=== PATIENT | female | born 1990 | race Caucasian/White ===

== ENCOUNTER 2019-02-19 18:56 | Emergency (ER) | payer SELFPAY ==
[~2019-02-19] VITALS: Ht 170.2 cm; Wt 54.4 kg
--- OUTSIDE RECORDS SUMMARY | 2019-02-19 19:00 | XMS REPORT ---
Author Author Migration, Doctor Organization [facility] Address Unknown Phone Unavailable Care Team Providers Care Clerk Checker Name Role Phone Migration, Doctor Unavailable Unavailable PROBLEMS No Known Problems ALLERGIES No Information ENCOUNTERS Encounter Location Date Diagnosis [facility] [address] [address] Nov, Sore throat J02.9 and Acute non-recurrent pansinusitis J01.40 [facility] IN [place] [address] [address] Aug, Bronchitis J40 and Cough R05 [address] [address] Oct, Encounter for surveillance of contraceptive pills Z30.41 [place] [address] [address] 18 Nov, [address] [address] Nov, Well woman exam with routine gynecological exam Z01.[address] [address] 17 Aug, 2016 Acute non-recurrent frontal sinusitis J01.10 [place] [address] [address] 20 Aug, 2015 Well woman exam Z01.419 ; Encounter for screening for malignant neoplasm of cervix Z12.4 ; Right lower quadrant pain R10.31 ; Diarrhea R19.7 ; Surveillance of contraceptive injection Z30.42 ; Encounter for counseling regarding contraception Z30.9 ; Vaginal lesion N89.8 ; Yeast infection B37.9 and Routine screening for STI (sexually transmitted infection) Z11.[address] [address] May, Encounter for Depo-Provera contraception Z30.42 [facility] [address] [id number] [address] Feb, Encounter for contraceptive management V25.9 [facility] [address] [facility] [id number], [place] [address] Nov, [facility] [address] [place] [id number] [place] [address] Nov, [facility] [address] [facility] [id number], [place] [address] Oct, [facility] [address] [place] [id number] [place] [address] Oct, [facility] [address] [place] [id number] [place] [address] Sep, [facility] [address] [place] [id number] [place] [address] Sep, [facility] [address] [place] [id number], [place] [address] Aug, [facility] [id number] [place] [address] Aug, [facility] [address] [place] [id number], [place] [address] Aug, [facility] [address] [place] [id number] [address] Jul, [facility] [address] [place] [id number], [place] [address] Jul, [facility] [address] [id number] [address] Apr, [facility] [address] [place] [id number], [place] [address] Apr, [facility] [address], [place] [address] December, [facility] [place] [facility] [address] [id number] [place] [address] December, [facility] [place] [facility] [address] [id number] [place] [address] Sep, [facility] [place] [facility] [address] [id number] [place] [address] Sep, [facility] [place] [facility] [address] [id number] [place] [address] Jul, [facility] [place] [facility] [address] [id number] [place] [address] Jul, [facility] [place] [facility] [address] [id number] [place] [address] Jun, [facility] [place] [facility] [address] [id number] [place] [address] Jun, [facility] [place] [facility] [address] [id number] [place] [address] Jun, [facility] [place] [facility] [address] [id number] [place] [address] Jun, [facility] [place] [facility] [address] [id number] [place] [address] Jun, [facility] [place] [facility] [address] [id number] [place] [address] Mar, [facility] [place] [facility] [address] [id number], [place] [address] Nov, [facility] [place] [facility] [address] [id number] [place] [address] Jun, [facility] [place] [facility] [address] [id number] [place] [address] Jun, [facility] [place] [facility] [address] [id number] [place] [address] Sep, [facility] [place] [facility] [address] [facility] [id number] [place] [address] Oct, [facility] [address] [facility] [id number] [place] [address] May, IMMUNIZATIONS No Known Immunizations SOCIAL HISTORY Never Assessed REASON FOR VISIT [facility] PLAN OF CARE VITAL SIGNS MEDICATIONS No Known Medications RESULTS No Results PROCEDURES No Known procedures INSTRUCTIONS MEDICATIONS ADMINISTERED No Known Medications MEDICAL (GENERAL) HISTORY Type Description Date Surgical History No know Surgical history
--- OUTSIDE RECORDS SUMMARY | 2019-02-19 19:00 | XMS REPORT ---
Author Author Migration, Doctor Organization [facility] Address Unknown Phone Unavailable Care Team Providers Care Charge Entry Name Role Phone Migration, Doctor Unavailable Unavailable PROBLEMS No Known Problems ALLERGIES No Information ENCOUNTERS Encounter Location Date Diagnosis [facility] [address] [place] [address] [id number] [place] [address] 14 Aug, 2018 Bronchitis J40 and Cough R05 [place] [address] [address] Oct, Encounter for surveillance of contraceptive pills Z30.41 [place] [address] [address] Nov, [place] [address] [address] Nov, Well woman exam with routine gynecological exam Z01.419 [place] [address] [address] 17 Aug, 2016 Acute non-recurrent frontal sinusitis J01.10 [place] [address] [place] [id number] [place] [address] Aug, Well woman exam Z01.419 ; Encounter for screening for malignant neoplasm of cervix Z12.4 ; Right lower quadrant pain R10.31 ; Diarrhea R19.7 ; Surveillance of contraceptive injection Z30.42 ; Encounter for counseling regarding contraception Z30.9 ; Vaginal lesion N89.8 ; Yeast infection B37.9 and Routine screening for STI (sexually transmitted infection) Z11.3 [place] [address] [address] May, Encounter for Depo-Provera contraception Z30.42 [place] [address] [address] Feb, Encounter for contraceptive management V25.9 [facility] [address] [id number] [place] [address] Nov, [facility] [address] [id number] [place] [address] Nov, [facility] [address] [facility] [id number] [place] [address] Oct, [facility] [address] [id number] [place] [address] Oct, [facility] [address] [id number] [place] [address] Sep, [facility] [address] [facility] [id number] [place] [address] Sep, [facility] [address] [facility] [id number] [place] [address] Aug, [facility] [address] [id number] [address] Aug, [facility] [address] [facility] [id number] [place] [address] Aug, [facility] [address] [facility] [id number] [place] [address] Jul, [facility] [address] [facility] [id number], [place] [address] Jul, [facility] [address] [id number], [place] [address] Apr, [facility] [address] [id number] [place] [address] Apr, [facility] [address] [facility] [id number], [place] [address] December, [facility] [place] [facility] [address] [facility] [id number] [place] [address] December, [facility] [address] [id number] [place] [address] Sep, [facility] [address] [id number] [place] [address] Sep, [facility] [address] [id number] [place] [address] Jul, [facility] [address] [id number] [place] [address] Jul, [facility] [address] [id number] [place] [address] Jun, [facility] [address] [id number] [place] [address] Jun, [facility] [address] [facility] [id number] [place] [address] Jun, [facility] [address] [facility] [id number] [place] [address] Jun, [facility] [address] [id number] [place] [address] Jun, [facility] [address] [facility] [id number] [place] [address] Mar, [facility] [address] [facility] [id number] [place] [address] Nov, [facility] [address] [id number] [place] [address] Jun, [facility] [address] [id number] [place] [address] Jun, [facility] [address] [facility] [id number] [place] [address] Sep, [facility] [address] [id number] [place] [address] Oct, [facility] [address] [id number] [place] [address] May, IMMUNIZATIONS No Known Immunizations SOCIAL HISTORY Never Assessed REASON FOR VISIT [facility] PLAN OF CARE VITAL SIGNS MEDICATIONS Medication Instructions Dosage Frequency Start Date End Date Duration Status Depo-Provera 150 mg/mL inject 150 mg by intramuscular route every 3 months Aug, Active Amoxicillin 500 mg 1 capsule by Oral route 2 times per day for 10 day(s) Nov, Active Augmentin 875-125 mg 1 tablet by Oral route 2 times per day for 14 day(s) Jul, Active Amoxicillin 875 mg 1 tablet by Oral route 2 times per day for 7 day(s) Jun, Active RESULTS No Results PROCEDURES No Known procedures INSTRUCTIONS MEDICATIONS ADMINISTERED No Known Medications MEDICAL (GENERAL) HISTORY Type Description Date Surgical History No know Surgical history
--- OUTSIDE RECORDS SUMMARY | 2019-02-19 19:01 | XMS REPORT ---
Author Author MARYJO GUNN [facility] Address [address] [place] [address] Care Team Providers Care Medical Orderly Name Role Phone MARYJO GUNN Unavailable PROBLEMS Unknown Problems ALLERGIES No Known Allergies ENCOUNTERS Encounter Location Date Diagnosis [place] [id number] [place] [address] Oct, Encounter for surveillance of contraceptive pills Z30.41 [place] [id number] [place] [address] Nov, [address] [address] Nov, Well woman exam with routine gynecological exam Z01.419 [place] [id number] [place] [address] Aug, Acute non-recurrent frontal sinusitis J01.10 [place] [id number] [place] [address] Aug, Well woman exam Z01.419 ; Encounter for screening for malignant neoplasm of cervix Z12.4 ; Right lower quadrant pain R10.31 ; Diarrhea R19.7 ; Surveillance of contraceptive injection Z30.42 ; Encounter for counseling regarding contraception Z30.9 ; Vaginal lesion N89.8 ; Yeast infection B37.9 and Routine screening for STI (sexually transmitted infection) Z11.3 [place] [id number] [place] [address] May, Encounter for Depo-Provera contraception Z30.42 [place] [id number] [place] [address] Feb, Encounter for contraceptive management V25.[address] [id number] [place] [address] 14 Nov, 2014 [facility] [place] [facility] [address] [id number] [place] [address] Nov, [facility] [place] [facility] [address] [id number] [place] [address] Oct, [facility] [place] [facility] [address] [id number] [place] [address] Oct, [facility] [place] [facility] [address] [id number] [place] [address] Sep, [facility] [place] [facility] [address] [id number] [place] [address] Sep, [facility] [place] [facility] [address] [id number] [place] [address] Aug, [facility] [place] [facility] [address] [id number] [place] [address] Aug, [facility] [place] [facility] [address] [id number] [place] [address] Aug, [facility] [place] [facility] [address] [id number] [place] [address] Jul, [facility] [place] [facility] [address] [id number] [place] [address] Jul, [facility] [place] [facility] [address] [id number] [place] [address] Apr, [facility] [place] [facility] [address] [id number] [place] [address] Apr, [facility] [place] [facility] [address] [id number] [place] [address] December, [facility] [place] [facility] [address] [id number] [place] [address] December, [facility] [place] [facility] [address] [id number] [place] [address] Sep, [facility] [address] [facility] [id number] [place] [address] Sep, [facility] [address] [facility] [id number] [place] [address] Jul, [facility] [address] [facility] [id number] [place] [address] Jul, [facility] [address] [facility] [id number] [place] [address] Jun, [facility] [address] [facility] [id number] [place] [address] Jun, [facility] [address] [facility] [id number] [place] [address] Jun, [facility] [address] [place] [address] [id number] [address] Jun, [facility] [address] [facility] [id number] [place] [address] Jun, [facility] [address] [facility] [id number] [place] [address] Mar, [facility] [address] [facility] [id number] [place] [address] Nov, [facility] [address] [place] [address] [id number] [address] Jun, [facility] [address] [facility] [id number] [place] [address] Jun, [facility] [address] [facility] [id number] [place] [address] Sep, [facility] [address] [facility] [id number] [place] [address] Oct, [facility] [address] [facility] [id number] [place] [address] May, IMMUNIZATIONS No Known Immunizations SOCIAL HISTORY Never Assessed REASON FOR VISIT control refills PLAN OF CARE Activity Details Follow Up 6 Months, prn Reason:annual physical VITAL SIGNS MEDICATIONS Medication Instructions Dosage Frequency Start Date End Date Duration Status Ortho Tri-Cyclen (28) 0.18/0.215/0.25 MG-35 MCG Orally Once a day 1 tablet 24h Nov, 28 day(s) Active RESULTS Name Result Date Reference Range TEST, URINE (IN HOUSE) 2017-11-19 RESULTS Negative Lot # [id number] Control + Exp date 05/2019 PROCEDURES Procedure Date Ordered Result Body Site URINE TEST November 19, 2017 INSTRUCTIONS MEDICATIONS ADMINISTERED No Known Medications
--- OUTSIDE RECORDS SUMMARY | 2019-02-19 19:01 | XMS REPORT ---
Author Author EDY PAGE [facility] eClinicalWorks Address Unknown Phone Unavailable Care Team Providers Care Site Monitor Name Role Phone EDY PAGE Unavailable Allergies, Adverse Reactions, Alerts Substance Reaction Event Type N.K.D.A. Info Not Available Non Drug Allergy Problems Problem Type Condition Code Onset Dates Condition Status Assessment Yeast infection B37.9 Active Assessment Encounter for counseling regarding contraception Z30.9 Active Assessment Vaginal lesion N89.8 Active Assessment Routine screening for STI (sexually transmitted infection) Z11.3 Active Problem Vaginal lesion N89.8 Active Assessment Well woman exam Z01.419 Active Problem Surveillance of contraceptive injection Z30.42 Active Assessment Diarrhea R19.7 Active Assessment Surveillance of contraceptive injection Z30.42 Active Assessment Encounter for screening for malignant neoplasm of cervix Z12.4 Active Assessment Right lower quadrant pain R10.31 Active Medications Medication Code System Code Instructions Start Date End Date Status Dosage Diflucan [facility] [address]-99 150 MG Orally Once Sep 13, 2015 1 tablet Depo-Provera [facility] [address]-75 150 MG/ML Intramuscular Once every 3 months Sep 07, 2014 inject 150 mg by intramuscular route every 3 months Procedures Procedure Coding System Code Date VIRUS INOCULATION, SHELL VIA CPT-4 55235 Sep 13, 2015 ALLISON VIRUS ISOLATE, HSV CPT-4 53839 Sep 13, 2015 DEPO PROVERA (150 MG/ML) CPT-4 J1050 Sep 13, 2015 TRICHOMONAS ASSAY W/OPTIC CPT-4 13584 Sep 13, 2015 No Charge CPT-4 78802 Sep 13, 2015 URINE TEST CPT-4 62087 Sep 13, 2015 CULTURE, BACTERIA, OTHER CPT-4 62818 Sep 13, 2015 THER/PROPH/DIAG INJ, SC/IM CPT-4 96705 Sep 13, 2015 VENIPUNCT, ROUTINE* CPT-4 81766 Sep 13, 2015 HERPES SIMPLEX TYPE 2 CPT-4 57552 Sep 13, 2015 Preventive Care Est Pt. Age 18-39 CPT-4 94879 Sep 13, 2015 HERPES SIMPLEX TEST CPT-4 72606 Sep 13, 2015 SPECIMEN HANDLING CPT-4 09660 Sep 13, 2015 Vital Signs Date/Time: Sep 13, 2015 Temperature 98.6 F Weight 118.4 lbs Height 68 in BMI 18.00 Index Blood Pressure Diastolic 70 mmHg Blood Pressure Systolic 108 mmHg Cardiac Monitoring Heart Rate 72 bpm Results Name Result Date Reference Range Unit Abnormality Flag TRICHOMONAS (IN HOUSE) ----Lot # [id number] ----Exp date 20150913 ----TRICHOMONAS Negative [id number] ----Control + [id number] TEST, URINE (IN HOUSE) ----RESULTS negative [id number] ----Lot # [id number] ----Control + [id number] ----Exp date 20150913 ROUTINE VENIPUNCTURE Summary Purpose eClinicalWorks Submission
--- OUTSIDE RECORDS SUMMARY | 2019-02-19 19:01 | XMS REPORT ---
Author Author NOEL ROSSI Organization [facility] Address [address] [place] [address] Care Team Providers Care Environmental Services Manager Name Role Phone NOEL ROSSI Unavailable PROBLEMS Type Condition ICD9-CM Code [id number] Code Onset Dates Condition Status SNOMED Code Problem Surveillance of contraceptive injection Z30.42 Active 333559503 Problem Vaginal lesion N89.8 Active [id number] ALLERGIES Substance Reaction Event Type Date Status N.K.D.A. Unknown Non Drug Allergy Aug, Unknown SOCIAL HISTORY No smoking Hx information available PLAN OF CARE Activity Details Follow Up prn Reason: VITAL SIGNS Height 68 in 2016-09-10 Weight 116.1 lbs 2016-09-10 Temperature 97.8 degrees Fahrenheit 2016-09-10 Heart Rate 82 bpm 2016-09-10 Respiratory Rate 18 2016-09-10 BMI 17.65 kg/m2 2016-09-10 Blood pressure systolic 116 mmHg 2016-09-10 Blood pressure diastolic 74 mmHg 2016-09-10 MEDICATIONS Medication Instructions Dosage Frequency Start Date End Date Duration Status Augmentin 875-125 MG Orally every 12 hrs 1 tablet 12h Aug, Aug, 10 day(s) Active RESULTS No Results PROCEDURES Procedure Date Ordered Related Diagnosis Body Site Office Visit, Est Pt., Level 3 Sep 10, 2016 IMMUNIZATIONS No Known Immunizations
--- OUTSIDE RECORDS SUMMARY | 2019-02-19 19:01 | XMS REPORT ---
Author MAXIMILIANO Lozano [facility] eClinicalWorks Address Unknown Phone Unavailable Care Team Providers Care Adult Secondary Education Instructor Name Role Phone MAXIMILIANO RAZO CP Unavailable Allergies No Known Allergies Problems Problem Type Condition Code Onset Dates Condition Status Problem Screening for malignant neoplasm of the cervix V76.2 Active Problem Unspecified breast screening V76.10 Active Problem Acute sinusitis, unspecified 461.9 Active Problem Acute pharyngitis 462 Active Assessment Encounter for Depo-Provera contraception Z30.42 Active Problem Unspecified disorder of the teeth and supporting structures 525.9 Active Problem Routine gynecological examination V72.31 Active Medications No Known Medications Procedures Procedure Coding System Code Date DEPO PROVERA (150 MG/ML) CPT-4 J1050 Jun 15, 2015 THER/PROPH/DIAG INJ, SC/IM CPT-4 43945 Jun 15, 2015 URINE TEST CPT-4 86512 Jun 15, 2015 Results Name Result Date Reference Range Unit Abnormality Flag TEST, URINE (IN HOUSE) Summary Purpose eClinicalWorks Submission
--- OUTSIDE RECORDS SUMMARY | 2019-02-19 19:01 | XMS REPORT | Continuity of Care Document ---
Author Organization Unknown Address Unknown Allergies There is no data. Medications There is no data. Problems Date Dx Coded Attending Type Code Diagnosis Diagnosed By 04/05/2008 599.0 URINARY TRACT INFECTION 04/05/2008 V25.40 CONTRACEPTIVE SURVEILLANCE UNSPECIFIED 04/05/2008 599.0 URINARY TRACT INFECTION 04/05/2008 V25.40 CONTRACEPTIVE SURVEILLANCE UNSPECIFIED 04/05/2008 599.0 URINARY TRACT INFECTION 04/05/2008 V25.40 CONTRACEPTIVE SURVEILLANCE UNSPECIFIED 04/05/2008 TENNILLE STALLINGS ASIA A 599.0 URINARY TRACT INFECTION 04/05/2008 TENNILLE STALLINGS ASIA A V25.40 CONTRACEPTIVE SURVEILLANCE UNSPECIFIED 04/05/2008 MARLENE STALLINGS ALMITA R 599.0 URINARY TRACT INFECTION 04/05/2008 ROSARIO HAYLIE, ALMITA R V25.40 CONTRACEPTIVE SURVEILLANCE UNSPECIFIED 04/05/2008 RAZO DO, MAXIMILIANO K 599.0 URINARY TRACT INFECTION 04/05/2008 RAZO DO, MAXIMILIANO K V25.40 CONTRACEPTIVE SURVEILLANCE UNSPECIFIED 04/05/2008 RAZO DO, MAXIMILIANO K 599.0 URINARY TRACT INFECTION 04/05/2008 RAZO DO, MAXIMILIANO K V25.40 CONTRACEPTIVE SURVEILLANCE UNSPECIFIED 04/05/2008 RAZO DO, MAXIMILIANO K 599.0 URINARY TRACT INFECTION 04/05/2008 RAZO DO, MAXIMILIANO K V25.40 CONTRACEPTIVE SURVEILLANCE UNSPECIFIED 04/05/2008 TENNILLECarmelo STALLINGS ASIA A 599.0 URINARY TRACT INFECTION 04/05/2008 TENNILLECarmelo STALLINGS ASIA A V25.40 CONTRACEPTIVE SURVEILLANCE UNSPECIFIED 04/05/2008 RAZO DO, MAXIMILIANO K 599.0 URINARY TRACT INFECTION 04/05/2008 RAZO DO, MAXIMILIANO K V25.40 CONTRACEPTIVE SURVEILLANCE UNSPECIFIED 04/06/2008 V25.49 SURVEILLANCE OF OTHER CONTRACEPTIVE METHOD 04/06/2008 V25.49 SURVEILLANCE OF OTHER CONTRACEPTIVE METHOD 04/06/2008 V25.49 SURVEILLANCE OF OTHER CONTRACEPTIVE METHOD 04/06/2008 SHARONDA NULL APRNIDI A V25.49 SURVEILLANCE OF OTHER CONTRACEPTIVE METHOD 04/06/2008 MARLENE STALLINGS, ALMITA R V25.49 SURVEILLANCE OF OTHER CONTRACEPTIVE METHOD 04/06/2008 RAZO DO MAXIMILIANO K V25.49 SURVEILLANCE OF OTHER CONTRACEPTIVE METHOD 04/06/2008 RAZO DO MAXIMILIANO K V25.49 SURVEILLANCE OF OTHER CONTRACEPTIVE METHOD 04/06/2008 RAZO DO MAXIMILIANO K V25.49 SURVEILLANCE OF OTHER CONTRACEPTIVE METHOD 04/06/2008 SHARONDA NULL APRNIDI A V25.49 SURVEILLANCE OF OTHER CONTRACEPTIVE METHOD 04/06/2008 RAZO DO MAXIMILIANO K V25.49 SURVEILLANCE OF OTHER CONTRACEPTIVE METHOD 08/31/2008 465.9 UPPER RESPIRATORY INFECTION 08/31/2008 786.2 COUGH 08/31/2008 465.9 UPPER RESPIRATORY INFECTION 08/31/2008 786.2 COUGH 08/31/2008 465.9 UPPER RESPIRATORY INFECTION 08/31/2008 786.2 COUGH 08/31/2008 SHARONDA NULL APRNIDI A 465.9 UPPER RESPIRATORY INFECTION 08/31/2008 SHARONDA NULL APRNIDI A 786.2 COUGH 08/31/2008 YOLIE ROSARIO APRNRICIA R 465.9 UPPER RESPIRATORY INFECTION 08/31/2008 ROSARIO HAYLIE, ALMITA R 786.2 COUGH 08/31/2008 RAZO DO, MAXIMILIANO K 465.9 UPPER RESPIRATORY INFECTION 08/31/2008 RAZO DO, MAXIMILIANO K 786.2 COUGH 08/31/2008 RAZO DO, MAXIMILIANO K 465.9 UPPER RESPIRATORY INFECTION 08/31/2008 RAZO DO, MAXIMILIANO K 786.2 COUGH 08/31/2008 RAZO DO, MAXIMILIANO K 465.9 UPPER RESPIRATORY INFECTION 08/31/2008 RAZO DO, MAXIMILIANO K 786.2 COUGH 08/31/2008 SHARONDA NULL APRNIDI A 465.9 UPPER RESPIRATORY INFECTION 08/31/2008 TENNILLE STALLINGS ASIA A 786.2 COUGH 08/31/2008 RAZO DO, MAXIMILIANO K 465.9 UPPER RESPIRATORY INFECTION 08/31/2008 RZAO DO, MAXIMILIANO K 786.2 COUGH 02/17/2010 704.8 OTHER SPECIFIED DISEASES OF HAIR AND HAIR FOLLICLES 02/17/2010 704.8 OTHER SPECIFIED DISEASES OF HAIR AND HAIR FOLLICLES 02/17/2010 704.8 OTHER SPECIFIED DISEASES OF HAIR AND HAIR FOLLICLES 02/17/2010 ASIA NULL APRN A 704.8 OTHER SPECIFIED DISEASES OF HAIR AND HAIR FOLLICLES 02/17/2010 ALMITA ROSARIO APRN 704.8 OTHER SPECIFIED DISEASES OF HAIR AND HAIR FOLLICLES 02/17/2010 MAXIMILIANO RAZO DO 704.8 OTHER SPECIFIED DISEASES OF HAIR AND HAIR FOLLICLES 02/17/2010 MAXIMILIANO RAZO DO K 704.8 OTHER SPECIFIED DISEASES OF HAIR AND HAIR FOLLICLES 02/17/2010 MAXIMILIANO RAZO DO K 704.8 OTHER SPECIFIED DISEASES OF HAIR AND HAIR FOLLICLES 02/17/2010 ASIA NULL APRN A 704.8 OTHER SPECIFIED DISEASES OF HAIR AND HAIR FOLLICLES 02/17/2010 MAXIMILIANO RAZO DO K 704.8 OTHER SPECIFIED DISEASES OF HAIR AND HAIR FOLLICLES 11/07/2010 720.2 SACROILIITIS NOT ELSEWHERE CLASSIFIED 11/07/2010 720.2 SACROILIITIS NOT ELSEWHERE CLASSIFIED 11/07/2010 720.2 SACROILIITIS NOT ELSEWHERE CLASSIFIED 11/07/2010 ASIA NULL APRN 720.2 SACROILIITIS NOT ELSEWHERE CLASSIFIED 11/07/2010 ALMITA ROSARIO APRN 720.2 SACROILIITIS NOT ELSEWHERE CLASSIFIED 11/07/2010 MAXIMILIANO RAZO DO K 720.2 SACROILIITIS NOT ELSEWHERE CLASSIFIED 11/07/2010 MAXIMILIANO RAZO DO K 720.2 SACROILIITIS NOT ELSEWHERE CLASSIFIED 11/07/2010 MAXIMILIANO RAZO DO K 720.2 SACROILIITIS NOT ELSEWHERE CLASSIFIED 11/07/2010 ASIA NULL APRN A 720.2 SACROILIITIS NOT ELSEWHERE CLASSIFIED 11/07/2010 MAXIMILIANO RAZO DO K 720.2 SACROILIITIS NOT ELSEWHERE CLASSIFIED 12/20/2010 626.4 IRREGULAR MENSTRUAL CYCLE 12/20/2010 706.1 ACNE 12/20/2010 V20.2 WELL CHILD 12/20/2010 V25.01 CONTRACEPTION COUNSELING- ORAL CONTRACEPTION 12/20/2010 626.4 IRREGULAR MENSTRUAL CYCLE 12/20/2010 706.1 ACNE 12/20/2010 V20.2 WELL CHILD 12/20/2010 V25.01 CONTRACEPTION COUNSELING- ORAL CONTRACEPTION 12/20/2010 626.4 IRREGULAR MENSTRUAL CYCLE 12/20/2010 706.1 ACNE 12/20/2010 V20.2 WELL CHILD 12/20/2010 V25.01 CONTRACEPTION COUNSELING- ORAL CONTRACEPTION 12/20/2010 TENNILLE GAS MANAGER, ASIA A 626.4 IRREGULAR MENSTRUAL CYCLE 12/20/2010 TENNILLE GAS MANAGER, ASIA A 706.1 ACNE 12/20/2010 TENNILLE GAS MANAGER, ASIA A V20.2 WELL CHILD 12/20/2010 TENNILLE GAS MANAGER, ASIA A V25.01 CONTRACEPTION COUNSELING- ORAL CONTRACEPTION 12/20/2010 ROSARIO GAS MANAGER, ALMITA R 626.4 IRREGULAR MENSTRUAL CYCLE 12/20/2010 ROSARIO GAS MANAGER, ALMITA R 706.1 ACNE 12/20/2010 ROSARIO GAS MANAGER, ALMITA R V20.2 WELL CHILD 12/20/2010 ROSARIO GAS MANAGER, ALMITA R V25.01 CONTRACEPTION COUNSELING- ORAL CONTRACEPTION 12/20/2010 RAZO DO, MAXIMILIANO K 626.4 IRREGULAR MENSTRUAL CYCLE 12/20/2010 RAZO DO, MAXIMILIANO K 706.1 ACNE 12/20/2010 RAZO DO, MAXIMILIANO K V20.2 WELL CHILD 12/20/2010 RAZO DO MAXIMILIANO K V25.01 CONTRACEPTION COUNSELING- ORAL CONTRACEPTION 12/20/2010 RAZO DO, MAXIMILIANO K 626.4 IRREGULAR MENSTRUAL CYCLE 12/20/2010 RAZO DO, MAXIMILIANO K 706.1 ACNE 12/20/2010 RAZO DO, MAXIMILIANO K V20.2 WELL CHILD 12/20/2010 RAZO DO, MAXIMILIANO K V25.01 CONTRACEPTION COUNSELING- ORAL CONTRACEPTION 12/20/2010 RAZO DO, MAXIMILIANO K 626.4 IRREGULAR MENSTRUAL CYCLE 12/20/2010 RAZO DO, MAXIMILIANO K 706.1 ACNE 12/20/2010 RAZO DO, MAXIMILIANO K V20.2 WELL CHILD 12/20/2010 RAZO DO, MAXIMILIANO K V25.01 CONTRACEPTION COUNSELING- ORAL CONTRACEPTION 12/20/2010 TENNILLE GAS MANAGER, ASIA A 626.4 IRREGULAR MENSTRUAL CYCLE 12/20/2010 TENNILLE GAS MANAGER, ASIA A 706.1 ACNE 12/20/2010 TENNILLE GAS MANAGER, ASIA A V20.2 WELL CHILD 12/20/2010 TENNILLE GAS MANAGER, ASIA A V25.01 CONTRACEPTION COUNSELING- ORAL CONTRACEPTION 12/20/2010 RAZO DO, MAXIMILIANO K 626.4 IRREGULAR MENSTRUAL CYCLE 12/20/2010 RAZO DO, MAXIMILIANO K 706.1 ACNE 12/20/2010 RAZO DO, MAXIMILIANO K V20.2 WELL CHILD 12/20/2010 RAZO DO, MAXIMILIANO K V25.01 CONTRACEPTION COUNSELING- ORAL CONTRACEPTION 02/12/2011 V25.02 CONTRACEPTION COUNSELING- ANY METHOD 02/12/2011 V25.9 CONTRACEPTIVE MANAGEMENT, UNSPECIFIED 02/12/2011 V72.41 EXAMINATION OR TEST NEGATIVE RESULT 02/12/2011 V25.02 CONTRACEPTION COUNSELING- ANY METHOD 02/12/2011 V25.9 CONTRACEPTIVE MANAGEMENT, UNSPECIFIED 02/12/2011 V72.41 EXAMINATION OR TEST NEGATIVE RESULT 02/12/2011 V25.02 CONTRACEPTION COUNSELING- ANY METHOD 02/12/2011 V25.9 CONTRACEPTIVE MANAGEMENT, UNSPECIFIED 02/12/2011 V72.41 EXAMINATION OR TEST NEGATIVE RESULT 02/12/2011 ASIA NULL APRN A V25.02 CONTRACEPTION COUNSELING- ANY METHOD 02/12/2011 ASIA NULL APRN A V25.9 CONTRACEPTIVE MANAGEMENT, UNSPECIFIED 02/12/2011 ASIA NULL APRN A V72.41 EXAMINATION OR TEST NEGATIVE RESULT 02/12/2011 RAINER ROSARIO APRNIA R V25.02 CONTRACEPTION COUNSELING- ANY METHOD 02/12/2011 RAINER ROSARIO APRNIA R V25.9 CONTRACEPTIVE MANAGEMENT, UNSPECIFIED 02/12/2011 RAINER ROSARIO APRNIA R V72.41 EXAMINATION OR TEST NEGATIVE RESULT 02/12/2011 RAZO DO, MAXIMILIANO K V25.02 CONTRACEPTION COUNSELING- ANY METHOD 02/12/2011 RAZO DO, MAXIMILIANO K V25.9 CONTRACEPTIVE MANAGEMENT, UNSPECIFIED 02/12/2011 RAZO DO, MAXIMILIANO K V72.41 EXAMINATION OR TEST NEGATIVE RESULT 02/12/2011 RAZO DO, MAXIMILIANO K V25.02 CONTRACEPTION COUNSELING- ANY METHOD 02/12/2011 RAZO DO, MAXIMILIANO K V25.9 CONTRACEPTIVE MANAGEMENT, UNSPECIFIED 02/12/2011 RAZO DO, MAXIMILIANO K V72.41 EXAMINATION OR TEST NEGATIVE RESULT 02/12/2011 RAZO DO, MAXIMILIANO K V25.02 CONTRACEPTION COUNSELING- ANY METHOD 02/12/2011 RAZO DO, MAXIMILIANO K V25.9 CONTRACEPTIVE MANAGEMENT, UNSPECIFIED 02/12/2011 RAZO DO, MAXIMILIANO K V72.41 EXAMINATION OR TEST NEGATIVE RESULT 02/12/2011 ASIA NULL APRN A V25.02 CONTRACEPTION COUNSELING- ANY METHOD 02/12/2011 ASIA NULL APRN A V25.9 CONTRACEPTIVE MANAGEMENT, UNSPECIFIED 02/12/2011 ASIA NULL APRN A V72.41 EXAMINATION OR TEST NEGATIVE RESULT 02/12/2011 DAVID RAZO DOA K V25.02 CONTRACEPTION COUNSELING- ANY METHOD 02/12/2011 DAVID RAZO DOA K V25.9 CONTRACEPTIVE MANAGEMENT, UNSPECIFIED 02/12/2011 DAVID RAZO DOA K V72.41 EXAMINATION OR TEST NEGATIVE RESULT 09/27/2011 461.9 ACUTE SINUSITIS UNSPECIFIED 09/27/2011 461.9 ACUTE SINUSITIS UNSPECIFIED 09/27/2011 461.9 ACUTE SINUSITIS UNSPECIFIED 09/27/2011 ASIA NULL APRN A 461.9 ACUTE SINUSITIS UNSPECIFIED 09/27/2011 ALMITA ROSARIO APRN R 461.9 ACUTE SINUSITIS UNSPECIFIED 09/27/2011 DAVID RAZO DOA K 461.9 ACUTE SINUSITIS UNSPECIFIED 09/27/2011 DAVID RAZO DOA K 461.9 ACUTE SINUSITIS UNSPECIFIED 09/27/2011 DAVID RAZO DOA K 461.9 ACUTE SINUSITIS UNSPECIFIED 09/27/2011 ASIA NULL APRN A 461.9 ACUTE SINUSITIS UNSPECIFIED 09/27/2011 DAVID RAZO DOA K 461.9 ACUTE SINUSITIS UNSPECIFIED 07/07/2012 525.9 TOOTH PAIN 07/07/2012 525.9 TOOTH PAIN 07/07/2012 525.9 TOOTH PAIN 07/07/2012 ASIA NULL APRN A 525.9 TOOTH PAIN 07/07/2012 ALMITA ROSARIO APRN R 525.9 TOOTH PAIN 07/07/2012 DANNI CARRILLO MAXIMILIANO K 525.9 TOOTH PAIN 07/07/2012 DANNI CARRILLO MAXIMILIANO K 525.9 TOOTH PAIN 07/07/2012 DANNI CARRILLO MAXIMILIANO K 525.9 TOOTH PAIN 07/07/2012 ASIA NULL APRN A 525.9 TOOTH PAIN 07/07/2012 DANNI CARRILLO MAXIMILIANO K 525.9 TOOTH PAIN 07/05/2013 ASIA NULL APRN V76.10 BREAST CANCER SCREENING 07/05/2013 ASIA NULL APRN V76.2 CERVICAL CANCER SCREENING (PAP SMEAR) 07/05/2013 ALMITA ROSARIO APRN R V76.10 BREAST CANCER SCREENING 07/05/2013 ALMITA ROSARIO APRN R V76.2 CERVICAL CANCER SCREENING (PAP SMEAR) 07/05/2013 MAXIMILIANO RAZO DO K V76.10 BREAST CANCER SCREENING 07/05/2013 DAVID RAZO DOA K V76.2 CERVICAL CANCER SCREENING (PAP SMEAR) 07/05/2013 DAVID RAZO DOA K V76.10 BREAST CANCER SCREENING 07/05/2013 DAVID RAZO DOA K V76.2 CERVICAL CANCER SCREENING (PAP SMEAR) 07/05/2013 DAVID RAZO DOA K V76.10 BREAST CANCER SCREENING 07/05/2013 DAVID RAZO DOA K V76.2 CERVICAL CANCER SCREENING (PAP SMEAR) 07/05/2013 ASIA NULL APRN V76.10 BREAST CANCER SCREENING 07/05/2013 ASIA NULL APRN V76.2 CERVICAL CANCER SCREENING (PAP SMEAR) 07/05/2013 MAXIMILIANO RAZO DO V76.10 BREAST CANCER SCREENING 07/05/2013 MAXIMILIANO RAZO DO V76.2 CERVICAL CANCER SCREENING (PAP SMEAR) 08/13/2013 ALMITA ROSARIO APRN R 462 ACUTE PHARYNGITIS 08/13/2013 MAXIMILIANO RAZO DO K 462 ACUTE PHARYNGITIS 08/13/2013 MAXIMILIANO RAZO DO K 462 ACUTE PHARYNGITIS 08/13/2013 MAXIMILIANO RAZO DO K 462 ACUTE PHARYNGITIS 08/13/2013 ASIA NLUL APRN 462 ACUTE PHARYNGITIS 08/13/2013 MAXIMILIANO RAZO DO 462 ACUTE PHARYNGITIS 09/07/2014 ASIA NULL APRN A V72.31 QUARRY MANAGER EXAM, ROUTINE 09/07/2014 MAXIMILIANO RAZO DO V72.31 QUARRY MANAGER EXAM, ROUTINE Procedures Code Description [place] [address] THERAPUTIC INJ SQ/IM 04/15/2013 J1050 DEPO PROVERA 04/15/2013 85287 URINE TEST (IN-HOUSE) 04/15/2013 08719 THERAPUTIC INJ SQ/IM 07/05/2013 J1050 DEPO PROVERA 07/05/2013 41027 PAP SMEAR 07/05/2013 Q0091 PAP SMEAR OBTAIN SMEAR 07/05/2013 29721 URINE TEST (IN-HOUSE) 07/05/2013 65103 STREP A (IN-HOUSE) 08/13/2013 J1050 DEPO PROVERA 10/20/2013 54576 TEST, URINE (IN-HOUSE) 10/20/2013 43131 THERAPUTIC INJ SQ/IM 10/20/2013 01210 THERAPUTIC INJ SQ/IM 01/10/2014 J1050 DEPO PROVERA 01/10/2014 89946 TEST, URINE (IN-HOUSE) 01/10/2014 J1050 DEPO PROVERA 08/11/2014 93022 THERAPUTIC INJ SQ/IM 08/11/2014 94481 TEST, URINE (IN-HOUSE) 08/11/2014 Q0091 PAP SMEAR OBTAIN SMEAR 09/07/2014 03917 PAP SMEAR 09/13/2014 41140 THERAPUTIC INJ SQ/IM 11/17/2014 86224 TEST, URINE (IN-HOUSE) 11/17/2014 J1050 DEPO PROVERA 11/17/2014 Results There is no data. Encounters ACCT No. Visit Date/Time Discharge Status Pt. Type Provider Facility Loc./Unit Complaint [id number] 11/17/2014 16:08:00 11/17/2014 23:59:59 CLS Outpatient MAXIMILIANO RAZO DO [id number] 09/07/2014 13:52:00 09/07/2014 23:59:59 CLS Outpatient ASIA NULL APRN [id number] 08/11/2014 17:37:00 08/11/2014 23:59:59 CLS Outpatient MAXIMILIANO RAZO DO [id number] 01/10/2014 18:30:00 01/10/2014 23:59:59 CLS Outpatient MAXIMILIANO RAZO DO [id number] 10/20/2013 17:04:00 10/20/2013 23:59:59 CLS Outpatient MAXIMILIANO RAZO DO [id number] 08/13/2013 13:43:00 08/13/2013 23:59:59 CLS Outpatient ALMITA ROSARIO APRN [id number] 07/05/2013 13:51:00 07/05/2013 23:59:59 CLS Outpatient ASIA NULL APRN [id number] 07/07/2012 14:19:00 07/07/2012 23:59:59 CLS Outpatient [id number] 04/15/2013 09:37:00 Document Registration [id number] 12/03/2012 15:45:00 Document Registration [id number] 12/10/2018 16:00:00 12/10/2018 23:59:[address] [facility] Outpatient ROSA MARIA VERDUGO APRN [facility]
--- NOTE | 2019-02-19 19:13 | ED GU-Female ---
General Chief Complaint: - Urinary Stated Complaint: FEVER/LOWER BACK PAIN Source: patient Exam Limitations: no limitations History of Present Illness Date Seen by Provider: Feb 19, 2019 Time Seen by Provider: 19:12 Initial Comments To ER with reports of fever and right lower back pain. This began with urinary symptoms about one week ago including burning on urination and urinary frequency. Symptoms resolved over the course of the week only to recur again y esterday when they were associated with nausea and fever. On arrival to ER temperature is 100.2 degrees. Timing/Duration: week, getting worse Severity/Quality: moderate Location: unknown Radiation: none Activities at Onset: none Associated Symptoms: dysuria, fever/chills, nausea/vomiting, urinary frequency Allergies and Home Medications Allergies Coded Allergies: No Known Allergies (Verified Allergy, Unknown, 01/21/06) Patient Home Medication List Home Medication List Reviewed: Yes Review of Systems Review of Systems Constitutional: see HPI EENTM: see HPI Respiratory: no symptoms reported Cardiovascular: no symptoms reported Genitourinary: no symptoms reported Musculoskeletal: see HPI, back pain Skin: no symptoms reported Psychiatric/Neurological: No Symptoms Reported Past Enizvfg-Phiizt-Qezkey Hx Patient Social History Recent Foreign Travel: No Contact w/Someone Who Travel: No Physical Exam Vital Signs Vital Signs - First Documented 02/19/19 19:03 Temp 102.4 Pulse 134 Resp 16 B/P (MAP) 124/88 (100) Pulse Ox 98 O2 Delivery Room Air Capillary Refill : Height, Weight, BMI Height: '" Weight: lbs. oz. kg; BMI Method: General Appearance: WD/WN, no apparent distress Neck: non-tender, full range of motion Cardiovascular: tachycardia Respiratory: no respiratory distress, no accessory muscle use Gastrointestinal: normal bowel sounds, soft Back: No CVA tenderness (R), No CVA tenderness (L) Extremities: normal range of motion, non-tender Neurologic/Psychiatric: alert, normal mood/affect Skin: normal color, warm/dry Focused Exam Lactate Level 02/19/19 19:11: Lactic Acid Level 0.92 Lactic Acid Level Laboratory Tests Test 02/19/19 19:11 Lactic Acid Level 0.92 MMOL/L (0.50-2.00) Progress/Results/Core Measures Suspected Sepsis SIRS Temperature: Pulse: Respiratory Rate: Laboratory Tests 02/19/19 19:11: White Blood Count 11.0 Blood Pressure / Mean: 02/19/19 19:11: Lactic Acid Level 0.92 Laboratory Tests 02/19/19 19:11: Creatinine 0.74, Platelet Count 142, Total Bilirubin 1.0 Results/Orders Lab Results Laboratory Tests Test 02/19/19 19:11 02/19/19 19:19 Range/Units White Blood Count 11.0 4.3-11.0 10^3/uL Red Blood Count 3.90 L 4.35-5.85 10^6/uL Hemoglobin 13.6 11.5-16.0 G/DL Hematocrit 37 35-52 % Mean Corpuscular Volume 95 80-99 FL Mean Corpuscular Hemoglobin 35 H 25-34 PG Mean Corpuscular Hemoglobin Concent 37 H 32-36 G/DL Red Cell Distribution Width 12.0 10.0-14.5 % Platelet Count 142 130-400 10^3/uL Mean Platelet Volume 10.3 7.4-10.4 FL Neutrophils (%) (Auto) 77 H 42-75 % Lymphocytes (%) (Auto) 11 L 12-44 % Monocytes (%) (Auto) 12 0-12 % Eosinophils (%) (Auto) 0 0-10 % Basophils (%) (Auto) 0 0-10 % Neutrophils # (Auto) 8.5 H 1.8-7.8 X 10^3 Lymphocytes # (Auto) 1.2 1.0-4.0 X 10^3 Monocytes # (Auto) 1.3 H 0.0-1.0 X 10^3 Eosinophils # (Auto) 0.0 0.0-0.3 10^3/uL Basophils # (Auto) 0.0 0.0-0.1 10^3/uL Sodium Level 134 L 135-145 MMOL/L Potassium Level 3.2 L 3.6-5.0 MMOL/L Chloride Level 98 98-107 MMOL/L Carbon Dioxide Level 23 21-32 MMOL/L Anion Gap 13 5-14 MMOL/L Blood Urea Nitrogen 8 7-18 MG/DL Creatinine 0.74 0.60-1.30 MG/DL Estimat Glomerular Filtration Rate > 60 BUN/Creatinine Ratio 11 Glucose Level 131 H 70-105 MG/DL Lactic Acid Level 0.92 0.50-2.00 MMOL/L Calcium Level 9.7 8.5-10.1 MG/DL Corrected Calcium 9.3 8.5-10.1 MG/DL Total Bilirubin 1.0 0.1-1.0 MG/DL Aspartate Amino Transf (AST/SGOT) 12 5-34 U/L Alanine Aminotransferase (ALT/SGPT) 10 0-55 U/L Alkaline Phosphatase 53 40-136 U/L Total Protein 7.6 6.4-8.2 GM/DL Albumin 4.5 3.2-4.5 GM/DL Urine Color YELLOW Urine Clarity CLEAR Urine pH 7 5-9 Urine Specific [place] 1.005 L 1.016-1.022 Urine Protein NEGATIVE NEGATIVE Urine Glucose (UA) NEGATIVE NEGATIVE Urine Ketones NEGATIVE NEGATIVE Urine Nitrite NEGATIVE NEGATIVE Urine Bilirubin NEGATIVE NEGATIVE Urine Urobilinogen NORMAL NORMAL MG/DL Urine Leukocyte Esterase 3+ H NEGATIVE Urine RBC (Auto) 3+ H NEGATIVE Urine RBC 0-2 /HPF Urine WBC 50-100 H /HPF Urine Squamous Epithelial Cells 2-5 /HPF Urine Crystals NONE /LPF Urine Bacteria MODERATE H /HPF Urine Casts NONE /LPF Urine Mucus NEGATIVE /LPF Urine Culture Indicated YES My Orders Orders - LAWSON GORDON APRN Ua Culture If Indicated (02/19/19 18:57) Urine Bedside (02/19/19 18:57) Cbc With Automated Diff (02/19/19 19:01) Comprehensive Metabolic Panel (02/19/19 19:01) Ed Iv/Invasive Line Start (02/19/19 19:01) Ns Iv 1000 Ml (Sodium Chloride 0.9%) (02/19/19 19:15) Ondansetron Injection (Zofran Injectio (02/19/19 19:15) Ketorolac Injection (Toradol Injection) (02/19/19 19:15) Ns Iv 1000 Ml (Sodium Chloride 0.9%) (02/19/19 19:15) Ondansetron Injection (Zofran Injectio (02/19/19 19:15) Ketorolac Injection (Toradol Injection) (02/19/19 19:15) Blood Culture (02/19/19 19:04) Lactic Acid Analyzer (02/19/19 19:04) Acetaminophen Tablet (Tylenol Tablet) (02/19/19 19:15) Urine Culture (02/19/19 19:19) Ceftriaxone For Iv Use (Rocephin For I (02/19/19 19:45) Medications Given in ED Current Medications Medications Dose Ordered Sig/Zaki Route Start Time Stop Time Status Last Admin Dose Admin Acetaminophen 1,000 mg ONCE ONCE PO 02/19/19 19:15 02/19/19 19:16 DC 02/19/19 19:14 1,000 MG Ceftriaxone Sodium 1000 mg/ Sterile Water 10 ml @ 200 mls/hr ONCE ONCE IV 02/19/19 19:45 02/19/19 19:47 DC 02/19/19 19:53 200 MLS/HR Ketorolac Tromethamine 15 mg ONCE ONCE IVP 02/19/19 19:15 02/19/19 19:16 DC 02/19/19 19:14 15 MG Ondansetron HCl 4 mg ONCE ONCE IVP 02/19/19 19:15 02/19/19 19:16 DC 02/19/19 19:14 4 MG Vital Signs/I&O 02/19/19 19:03 Temp 102.4 Pulse 134 Resp 16 B/P (MAP) 124/88 (100) Pulse Ox 98 O2 Delivery Room Air Capillary Refill : Departure Impression Primary Impression: Urinary tract infection Qualified Codes: N30.00 - Acute cystitis without hematuria Disposition: HOME, SELF-CARE Condition: Stable Departure-Patient Inst. Decision time for Depature: 20:01 Ref[place]: [facility] [place] Primary Care Physician Patient Instructions: Urinary Tract Infection, Adult (DC) Add. Discharge Instructions: 1. Tylenol and Ibuprofen for pain or fever control. start the antibiotics as directed. See your doctor next week for follow up. Return to Er for any worsening. All discharge instructions reviewed with patient and/or family. Voiced understanding. Scripts Cefuroxime Axetil (Cefuroxime) 500 Mg Tablet 500 MG PO BID, #10 TAB Prov: LAWSON OGRDON APRN 02/19/19 Work/School Note: Work Release Form Date Seen in the Emergency Department: Feb 19, 2019 Return to Work: Feb 21, 2019 LAWSON GORDON APRN Feb 19, 2019 19:13
[2019-02-19] MEDS ORDERED: KETOROLAC 30 MG/ML VIAL IVP ONE ×2 (19:15)
[2019-02-19] MEDS ORDERED: NS IV 1000 ML 1,000 ML IV SCH ×2 (19:15)
[2019-02-19] MEDS ORDERED: ACETAMINOPHEN 500 MG TAB (TYLENOL) PO ONE (19:15)
[2019-02-19] MEDS ORDERED: ONDANSETRON 4 MG/2 ML (SDV) Z0FRAN IVP ONE ×2 (19:15)
[2019-02-19 19:16] LABS: BASOPHILS % (AUTO) 0 % (0-10); EOSINOPHILS % (AUTO) 0 % (0-10); HEMATOCRIT 37 % (35-52); HEMOGLOBIN 13.6 G/DL (11.5-16.0); LYMPHOCYTES # (AUTO) 1.2 X 10^3 (1.0-4.0); LYMPHOCYTES % (AUTO) 11 % (12-44); MEAN CORPUSCULAR HEMOGLOBIN 35 PG (25-34); MEAN CORPUSCULAR HGB CONC 37 G/DL (32-36); MEAN CORPUSCULAR VOLUME 95 FL (80-99); MEAN PLATELET VOLUME 10.3 FL (7.4-10.4); MONOCYTES # (AUTO) 1.3 X 10^3 (0.0-1.0); MONOCYTES % (AUTO) 12 % (0-12); NEUTROPHILS # (AUTO) 8.5 X 10^3 (1.8-7.8); NEUTROPHILS % (AUTO) 77 % (42-75); PLATELET COUNT 142 10^3/uL (130-400)
[2019-02-19 19:25] LABS: BILIRUBIN,URINE NEGATIVE (NEGATIVE); CLARITY,URINE CLEAR; COLOR,URINE YELLOW; GLUCOSE, URINE (UA) NEGATIVE (NEGATIVE); KETONES,URINE NEGATIVE (NEGATIVE); LEUKOCYTE ESTERASE ,URINE 3+ (NEGATIVE); NITRITE,URINE NEGATIVE (NEGATIVE); PH,URINE 7 (5-9); PROTEIN,URINE NEGATIVE (NEGATIVE); UROBILINOGEN,URINE NORMAL (NORMAL)
[2019-02-19 19:33] LABS: BACTERIA,URINE MODERATE /HPF; RBC,URINE 0-2 /HPF; WBC,URINE 50-100 /HPF
[2019-02-19 19:45] LABS: ALANINE AMINOTRANSFERASE 10 U/L (0-55); ALBUMIN 4.5 GM/DL (3.2-4.5); ALKALINE PHOSPHATASE 53 U/L (40-136); BUN/CREATININE RATIO 11; CALCIUM 9.7 MG/DL (8.5-10.1); CARBON DIOXIDE 23 MMOL/L (21-32); CHLORIDE 98 MMOL/L (98-107); CREATININE SERUM 0.74 MG/DL (0.60-1.30); GFR ESTIMATED > 60; GLUCOSE 131 MG/DL (70-105); POTASSIUM 3.2 MMOL/L (3.6-5.0); SODIUM 134 MMOL/L (135-145); TOTAL PROTEIN 7.6 GM/DL (6.4-8.2)
[2019-02-19] MEDS ORDERED: cefTRIAXone FOR IV USE 1,000 MG in WATER (STERILE) FOR INJECTION 10 ML IV ONE (19:45)
[2019-02-19] MEDS ORDERED: CEFU500T63 PO (20:02)
[2019-02-19 20:36] VITALS: BP 114/69
== END 2019-02-19 20:36 | disposition home or self-care (01) ==
LOC: EDUNIT# 18:56 → ER 18:57
DX: N39.0 Urinary tract infection, site not specified (principal)
CPT/HCPCS: 36415; 80053; 81000; 83605; 84703; 85025; 87040; 87088

== ENCOUNTER 2020-10-17 19:39 | Emergency (ER) | payer MEDICAID ==
[~2020-10-17] VITALS: Ht 170.2 cm; Wt 74.4 kg
[~2020-10-17 19:39] MED LIST: CEFU500T63 PO
[2020-10-17 20:22] VITALS: BP 149/81
[2020-10-17 20:58] LABS: BILIRUBIN,URINE NEGATIVE (NEGATIVE); CLARITY,URINE CLEAR; COLOR,URINE YELLOW; GLUCOSE, URINE (UA) NEGATIVE (NEGATIVE); KETONES,URINE NEGATIVE (NEGATIVE); LEUKOCYTE ESTERASE ,URINE NEGATIVE (NEGATIVE); NITRITE,URINE NEGATIVE (NEGATIVE); PROTEIN,URINE NEGATIVE (NEGATIVE)
[2020-10-17 21:05] LABS: BACTERIA,URINE FEW /HPF; SQUAMOUS EPITHELIAL CELL,UR 0-2 /HPF; WBC,URINE 0-2 /HPF
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
== END 2020-10-17 21:24 | disposition home or self-care (01) ==
LOC: EDUNIT# 19:39 → ER 19:40
DX: O9A.212 Injury, poisoning and certain other consequences of external causes complicating pregnancy, second trimester (principal); M25.512 Pain in left shoulder; R07.89 Other chest pain; O99.412 Diseases of the circulatory system complicating pregnancy, second trimester; R00.2 Palpitations; O99.332 Smoking (tobacco) complicating pregnancy, second trimester; Z77.22 Contact with and (suspected) exposure to environmental tobacco smoke (acute) (chronic); R40.2140 Coma scale, eyes open, spontaneous, unspecified time; R40.2250 Coma scale, best verbal response, oriented, unspecified time; R40.2360 Coma scale, best motor response, obeys commands, unspecified time; Z3A.26 26 weeks gestation of pregnancy; V40.5XXA Car driver injured in collision with pedestrian or animal in traffic accident, initial encounter
CPT/HCPCS: 81000

== ENCOUNTER 2020-10-17 21:13 | Outpatient (CLI) | payer MEDICAID ==
[~2020-10-17] VITALS: Ht 170.2 cm; Wt 73.0 kg
[2020-10-17 21:57] VITALS: BP 105/55
[2020-10-17 22:00] VITALS: BP 105/55
[2020-10-17 22:01] VITALS: BP 105/55
[2020-10-17 22:03] VITALS: BP 105/55
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
== END 2020-10-17 22:07 | disposition home or self-care (01) ==
LOC: LDRP 21:13 → WSo 21:13
PROVIDERS: ATTEND Family Medicine
DX: O9A.213 Injury, poisoning and certain other consequences of external causes complicating pregnancy, third trimester (principal); Z3A.32 32 weeks gestation of pregnancy
CPT/HCPCS: 99212

== ENCOUNTER 2021-01-18 00:03 | Inpatient (IN) | payer MEDICAID ==
[~2021-01-18] VITALS: Ht 170.2 cm; Wt 79.3 kg
[2021-01-18] VITALS (35 sets, daily range): BP systolic 106–149; BP diastolic 56–94
[2021-01-18 00:24] LABS: BILIRUBIN,URINE NEGATIVE (NEGATIVE); CLARITY,URINE CLEAR; COLOR,URINE YELLOW; GLUCOSE, URINE (UA) NEGATIVE (NEGATIVE); KETONES,URINE TRACE (NEGATIVE); LEUKOCYTE ESTERASE ,URINE NEGATIVE (NEGATIVE); NITRITE,URINE NEGATIVE (NEGATIVE); PROTEIN,URINE NEGATIVE (NEGATIVE)
[2021-01-18 00:32] LABS: BACTERIA,URINE NEGATIVE /HPF
[2021-01-18] MEDS ORDERED: PREN-142 PO (02:18)
[2021-01-18] MEDS ORDERED: D5 LR IV SOLUTION 1,000 ML IV ONE (03:28)
[2021-01-18] MEDS ORDERED: D5 LR IV SOLUTION 1,000 ML IV SCH (03:30)
[2021-01-18] MEDS ORDERED: MINERAL OIL CONCENTRATE 99.9% 15 ML UDC TOP PRN (03:30)
[2021-01-18 04:00] LABS: BASOPHILS % (AUTO) 0 % (0-10); EOSINOPHILS # (AUTO) 0.1 10^3/uL (0.0-0.3); EOSINOPHILS % (AUTO) 1 % (0-10); HEMATOCRIT 35 % (35-52); HEMOGLOBIN 12.7 g/dL (11.5-16.0); LYMPHOCYTES # (AUTO) 1.9 10^3/uL (1.0-4.0); LYMPHOCYTES % (AUTO) 15 % (12-44); MEAN CORPUSCULAR HEMOGLOBIN 36 pg (25-34); MEAN CORPUSCULAR HGB CONC 36 g/dL (32-36); MEAN CORPUSCULAR VOLUME 99 fL (80-99); MEAN PLATELET VOLUME 10.9 fL (9.0-12.2); MONOCYTES # (AUTO) 0.8 10^3/uL (0.0-1.0); MONOCYTES % (AUTO) 6 % (0-12); NEUTROPHILS # (AUTO) 9.6 10^3/uL (1.8-7.8); NEUTROPHILS % (AUTO) 77 % (42-75); PLATELET COUNT 180 10^3/uL (130-400); WHITE BLOOD COUNT 12.4 10^3/uL (4.3-11.0)
[2021-01-18] MEDS ORDERED: BUTORPHANOL INJ 2 MG/ML (STADOL) VIAL ONE (04:46)
[2021-01-18] MEDS ORDERED: BUTORPHANOL INJ 2 MG/ML (STADOL) VIAL IV ONE (05:00)
[2021-01-18] MEDS ORDERED: CATHETER FLUSH 10 ML SYR IV SCH ×2 (06:00→14:00)
[2021-01-18] MEDS ORDERED: LACTATED RINGERS 1,000 ML IV SCH ×2 (07:00→08:00)
[2021-01-18] MEDS ORDERED: fentaNYL 2 mcg/ml BUPIVA 0.125 100 ML ONE (07:18)
[2021-01-18] MEDS ORDERED: fentaNYL INJ 100 MCG/2 ML AMP ONE (07:31)
[2021-01-18] MEDS ORDERED: BUPIVACAINE 0.25% 30 ML (SENSORCAINE) VIAL ONE (07:31)
[2021-01-18] MEDS ORDERED: NALOXONE 0.4 MG/ML 1 ML (NARCAN) VIAL IV PRN (08:00)
[2021-01-18] MEDS ORDERED: EPIDURAL (fentaNYL 2 MCG/ML BUPIVA 0.125%)100 ML BAG EPI PRN (08:00)
[2021-01-18] MEDS ORDERED: ONDANSETRON 4 MG/2 ML (SDV) Z0FRAN IV PRN (08:00)
[2021-01-18] MEDS ORDERED: diphenhydrAMINE 50 MG/ML INJ (BENADRYL) IV PRN (08:00)
[2021-01-18] MEDS ORDERED: LIDOCAINE/EPI 2% 1:200,00 (XYLOCAINE) 20 ML VIAL ONE (08:58)
[2021-01-18] MEDS ORDERED: OXYTOCIN PRE-MIX DRIP 1,000 ML IV ONE (08:59)
--- NOTE | 2021-01-18 09:11 | History & Physical-OB ---
OB - Chief Complaint & HPI Date/Time Date of Admission: Date of Admission: January 18, 2021 at 03:46 Date seen by a Provider: January 18, 2021 Time Seen by a Provider: 09:06 Chief Complaint/History OB-Reason for Admission/Chief: Onset of Labor Hx : 2 Hx Para: 1 Expected Date of Delivery: Jan 23, 2021 Gestational Age in Weeks: 39 Gestational Age in Days: 2 History of Labs O+, Ab neg Rub Imm HIV/RPR/HepB/C NR Normal pap Normal 1 hr GTT GBS neg Allergies and Home Medications Allergies Coded Allergies: NKANo Known Allergies (Verified Allergy, Unknown, 01/21/06) Home Medications Vit No.124/Iron/FA 1 Each Tablet, 1 EACH PO DAILY, (Reported) Last Action: New Order Patient Home Medication List Home Medication List Reviewed: Yes OB - History Hx of Present Care: Yes Ultrasounds: Normal mid trimester US Obstetrical Complications: None Medical Complications: None Information Induced Hypertension: No Maternal Gestational Diabetes: No Hemorrhage: No Obstetrical History Hx : 2 Hx Para: 1 Hx # Term Pregnancies: 1 Number of Living Children: 1 Hx Total # of Abortions (Spona: 0 Patient Past Medical History NA Social History/Family History Alcohol Use: Denies Use Recreational Drug Use: No Smoking Cessation: Never smoker 2nd Hand Smoke Exposure: Yes Immunizations Tetanus Booster (TDap): Less than 5yrs (11/14/20) Rubella: immune RPR/VDRL: Negative GBS Status: Negative HBsAG: Negative OB - Admission Exam Physical Exam Vitals: Vital Signs 01/18/21 01/18/21 01/18/21 00:13 03:45 06:30 Temp 36.5 Pulse 88 Resp 18 B/P (MAP) 110/75 (87) Pulse Ox 98 O2 Delivery Room Air HEENT: NCAT Heart: Rhythm Normal Lungs: Clear Abdomen: Gravid Cervical Dilatation: 9cm Effacement: 100% Membranes: Intact Accelerations: Accelerations Present Decelerations: No Decelerations Short Term Variability: Present Contractions on Admission: < 5 Minutes Apart Intensity: Firm Labs Laboratory Tests Test 01/18/21 00:05 01/18/21 03:50 Range/Units Urine Color YELLOW Urine Clarity CLEAR Urine pH 6.0 5-9 Urine Specific [place] 1.025 H 1.016-1.022 Urine Protein NEGATIVE NEGATIVE Urine Glucose (UA) NEGATIVE NEGATIVE Urine Ketones TRACE H NEGATIVE Urine Nitrite NEGATIVE NEGATIVE Urine Bilirubin NEGATIVE NEGATIVE Urine Urobilinogen 0.2 < = 1.0 MG/DL Urine Leukocyte Esterase NEGATIVE NEGATIVE Urine RBC (Auto) NEGATIVE NEGATIVE Urine RBC NONE /HPF Urine WBC 2-5 /HPF Urine Squamous Epithelial Cells 2-5 /HPF Urine Renal Epithelial Cells NONE /HPF Urine Crystals NONE /LPF Urine Bacteria NEGATIVE /HPF Urine Casts NONE /LPF Urine Mucus NEGATIVE /LPF Urine Culture Indicated NO White Blood Count 12.4 H 4.3-11.0 10^3/uL Red Blood Count 3.56 L 3.80-5.11 10^6/uL Hemoglobin 12.7 11.5-16.0 g/dL Hematocrit 35 35-52 % Mean Corpuscular Volume 99 80-99 fL Mean Corpuscular Hemoglobin 36 H 25-34 pg Mean Corpuscular Hemoglobin Concent 36 32-36 g/dL Red Cell Distribution Width 12.9 10.0-14.5 % Platelet Count 180 130-400 10^3/uL Mean Platelet Volume 10.9 9.0-12.2 fL Immature Granulocyte % (Auto) 0 % Neutrophils (%) (Auto) 77 H 42-75 % Lymphocytes (%) (Auto) 15 12-44 % Monocytes (%) (Auto) 6 0-12 % Eosinophils (%) (Auto) 1 0-10 % Basophils (%) (Auto) 0 0-10 % Neutrophils # (Auto) 9.6 H 1.8-7.8 10^3/uL Lymphocytes # (Auto) 1.9 1.0-4.0 10^3/uL Monocytes # (Auto) 0.8 0.0-1.0 10^3/uL Eosinophils # (Auto) 0.1 0.0-0.3 10^3/uL Basophils # (Auto) 0.0 0.0-0.1 10^3/uL Immature Granulocyte # (Auto) 0.0 0.0-0.1 10^3/uL OB - Assessment/Plan/Diagnosis Assessment Assessment: active labor Admission Dx Active Labor Third Trimester 39 week gestation Admission Status: Inpatient Order (span 2 midnights) Reason for Inpatient Admission: Labor Plan Other Plan 30 yo @ 39.3 wga here in active labor Plan - AROM 0900 clear - Expectant management - Epidural for pain control - GBS neg Copy Copies To 1: RAY BAKER MD, HOLLY R MD January 18, 2021 09:11
[2021-01-18] MEDS: OXYTOCIN PRE-MIX DRIP 500 ML IV SCH ×2 (09:59→10:29)
[2021-01-18] MEDS ORDERED: MEASLES,MUMPS,RUBELLA 1 EA INJ SQ ONE (11:15)
[2021-01-18] MEDS ORDERED: TETANUS,DIPTH,PERTUSS P/F (BOOSTRIX) 0.5 ML VIAL IM ONE (11:15)
[2021-01-18] MEDS ORDERED: WITCH HAZEL(TUCKS) 40 EA JAR TOP PRN (11:15)
[2021-01-18] MEDS ORDERED: BENZOCAINE/MENTHOL (DERMOPLAST) 56 ML CAN TP PRN (11:15)
[2021-01-18] MEDS: IBUPROFEN 600 MG (MOTRIN) TAB PO SCH ×2 (13:20→20:04)
[2021-01-18] MEDS: ACETAMINOPHEN 500 MG TAB (TYLENOL) PO SCH ×2 (13:20→23:07)
[2021-01-18] MEDS: DOCUSATE SODIUM 100 MG (COLACE) CAP PO SCH (20:03)
--- NOTE | 2021-01-18 21:29 | OB Labor & Delivery Record ---
Vag Delivery Note Vag Delivery Note Date of Delivery: 01/18/21 Preoperative Diagnosis: Federico Pickering is a (30 /Para 2 / 1, Gestational Age (wks)39.3 wga here in active labor. Postoperative Diagnosis: Same Surgeon: RAY BAKER Sustainability Analyst: None Anesthesia: Epidural Delivery Type: @ 0954 Findings: Viable term female infant, apgars 8/9, weight 6#14oz, 3118 grams Lacerations: None Intact placenta with 3 vessel cord. No nuchal cord, body cord or shoulder dystocia Estimated Blood Loss: 100 ml Complications: None Condition: Stable Description of Procedure: The patient is a 30 year old female who presented in active labor. She was admitted and informed consent was obtained. Her labor course was unremarkable. She progressed to complete dilatation and began to push. She was then set up for delivery. The 's head was delivered atraumatically in the TRACI position. The shoulders and remainder of the 's body were then delivered without difficulty. Upon delivery, the head was held below the level of the perineum and the mouth and nares were bulb suctioned. The cord was doubly clamped and cut after 2 min delay and the was place on maternal abdomen and attended to by the pediatric staff. An intact placenta with 3-vessel cord delivered via Hemalatha and there was found to be minimal bleeding.~ Vigorous fundal massage was performed and the fundus was found to be firm. IV oxytocin was given. Examination of the vagina and perineum revealed no lacerations that required repair. Following the repair, sponge, instrument and needle counts were correct. Mom and baby were both in stable condition in the labor suite. Vitals - Labs Vital Signs - I&O Vital Signs Date Time Temp Pulse Resp B/P (MAP) Pulse Ox O2 Delivery O2 Flow Rate FiO2 01/18/21 20:04 36.5 95 18 130/71 (90) 97 Room Air 01/18/21 15:50 36.8 99 18 115/56 (75) 96 Room Air 01/18/21 12:30 98 18 109/61 (77) Room Air 01/18/21 12:15 102 18 117/70 (86) Room Air 01/18/21 12:00 101 18 108/60 (76) Room Air 01/18/21 11:45 96 18 109/58 (75) Room Air 01/18/21 11:30 94 18 108/56 (73) Room Air 01/18/21 11:15 100 18 115/77 (90) Room Air 01/18/21 11:00 102 18 113/72 (86) Room Air 01/18/21 10:45 100 18 112/68 (83) Room Air 01/18/21 10:33 109 18 106/68 (81) Room Air 01/18/21 10:15 102 18 128/68 (88) Room Air 01/18/21 10:00 107 18 129/64 (85) Room Air 01/18/21 09:48 Non Rebreather 15.00 01/18/21 09:45 98 18 127/66 (86) Room Air 01/18/21 09:30 121 18 131/76 (94) 98 Room Air 01/18/21 09:15 101 18 122/73 (89) 97 Room Air 01/18/21 09:00 102 18 130/79 (96) 98 Room Air 01/18/21 08:45 97 18 125/74 (91) 97 Room Air 01/18/21 08:30 97 18 147/83 (104) 97 Room Air 01/18/21 08:15 89 18 122/71 (88) 95 Room Air 01/18/21 08:10 90 18 120/73 (89) 95 Room Air 01/18/21 08:05 88 18 125/69 (87) 95 Room Air 01/18/21 08:00 88 18 125/69 (87) 95 Room Air 01/18/21 07:55 85 18 131/78 (95) 97 Room Air 01/18/21 07:50 100 18 138/83 (101) 98 Room Air 01/18/21 07:45 101 18 142/70 (94) 97 Room Air 01/18/21 07:41 96 18 149/76 (100) 97 Room Air 01/18/21 07:30 36.1 95 18 132/94 (107) Room Air 01/18/21 06:30 88 18 110/75 (87) 01/18/21 05:30 85 18 137/75 (95) 01/18/21 03:45 36.5 105 18 129/89 (102) 01/18/21 00:15 107 18 134/80 (98) 01/18/21 00:13 36.8 107 18 98 Room Air 01/18/21 00:12 36.8 107 18 98 Room Air Labs Laboratory Tests 01/18/21 00:05: Urine Color YELLOW, Urine Clarity CLEAR, Urine pH 6.0, Urine Specific [place] 1.025H, Urine Protein NEGATIVE, Urine Glucose (UA) NEGATIVE, Urine Ketones TRACEH, Urine Nitrite NEGATIVE, Urine Bilirubin NEGATIVE, Urine Urobilinogen 0.2, Urine Leukocyte Esterase NEGATIVE, Urine RBC (Auto) NEGATIVE, Urine RBC NONE, Urine WBC 2-5, Urine Squamous Epithelial Cells 2-5, Urine Renal Epithelial Cells NONE, Urine Crystals NONE, Urine Bacteria NEGATIVE, Urine Casts NONE, Urine Mucus NEGATIVE, Urine Culture Indicated NO 01/18/21 03:50: White Blood Count 12.4H, Red Blood Count 3.56L, Hemoglobin 12.7, Hematocrit 35, Mean Corpuscular Volume 99, Mean Corpuscular Hemoglobin 36H, Mean Corpuscular Hemoglobin Concent 36, Red Cell Distribution Width 12.9, Platelet Count 180, Mean Platelet Volume 10.9, Immature Granulocyte % (Auto) 0, Neutrophils (%) (Auto) 77H, Lymphocytes (%) (Auto) 15, Monocytes (%) (Auto) 6, Eosinophils (%) (Auto) 1, Basophils (%) (Auto) 0, Neutrophils # (Auto) 9.6H, Lymphocytes # (Auto) 1.9, Monocytes # (Auto) 0.8, Eosinophils # (Auto) 0.1, Basophils # (Auto) 0.0, Immature Granulocyte # (Auto) 0.0, Syphilis Serology Non-Reactive RAY BAKER MD January 18, 2021 21:29
[2021-01-19] MEDS: IBUPROFEN 600 MG (MOTRIN) TAB PO SCH ×2 (02:06→08:19)
[2021-01-19 04:50] VITALS: BP 115/66
[2021-01-19 06:24] LABS: HEMOGLOBIN 11.6 g/dL (11.5-16.0); MEAN CORPUSCULAR VOLUME 101 fL (80-99)
[2021-01-19 06:25] LABS: BASOPHILS # (AUTO) 0.1 10^3/uL (0.0-0.1); BASOPHILS % (AUTO) 1 % (0-10); EOSINOPHILS # (AUTO) 0.1 10^3/uL (0.0-0.3); EOSINOPHILS % (AUTO) 1 % (0-10); HEMATOCRIT 33 % (35-52); LYMPHOCYTES # (AUTO) 1.6 10^3/uL (1.0-4.0); LYMPHOCYTES % (AUTO) 18 % (12-44); MEAN CORPUSCULAR HEMOGLOBIN 35 pg (25-34); MEAN CORPUSCULAR HGB CONC 35 g/dL (32-36); MEAN PLATELET VOLUME 10.9 fL (9.0-12.2); MONOCYTES # (AUTO) 0.7 10^3/uL (0.0-1.0); MONOCYTES % (AUTO) 7 % (0-12); NEUTROPHILS # (AUTO) 6.8 10^3/uL (1.8-7.8); NEUTROPHILS % (AUTO) 74 % (42-75); PLATELET COUNT 147 10^3/uL (130-400); WHITE BLOOD COUNT 9.2 10^3/uL (4.3-11.0)
[2021-01-19] MEDS ORDERED: PRENATAL VITAMIN 1 EA TAB PO SCH (07:00)
[2021-01-19] MEDS ORDERED: DCS100C PO (07:41)
[2021-01-19] MEDS ORDERED: IBUP-844 PO (07:41)
[2021-01-19 08:13] VITALS: BP 111/71
[2021-01-19] MEDS: DOCUSATE SODIUM 100 MG (COLACE) CAP PO SCH (08:19)
[2021-01-19] MEDS: ACETAMINOPHEN 500 MG TAB (TYLENOL) PO SCH (08:19)
--- NOTE | 2021-01-19 10:49 | Discharge Summary ---
Discharge Summary Hospital Course Hospital Course Date of Admission: January 18, 2021 at 03:46 Admission Diagnosis : Spontaneous onset of labor at 39 weeks gestation Family [facility] Date of Discharge: 01/19/21 Discharge Diagnosis: s/p spontaneous vaginal delivery Hospital Course: Pt had unremarkable labor, vaginal delivery and course. Labs and Pending Lab Test: Laboratory Tests 01/19/21 06:09: White Blood Count 9.2, Red Blood Count 3.28L, Hemoglobin 11.6, Hematocrit 33L, Mean Corpuscular Volume 101H, Mean Corpuscular Hemoglobin 35H, Mean Corpuscular Hemoglobin Concent 35, Red Cell Distribution Width 13.1, Platelet Count 147, Mean Platelet Volume 10.9, Immature Granulocyte % (Auto) 0, Neutrophils (%) (Auto) 74, Lymphocytes (%) (Auto) 18, Monocytes (%) (Auto) 7, Eosinophils (%) (Auto) 1, Basophils (%) (Auto) 1, Neutrophils # (Auto) 6.8, Lymphocytes # (Auto) 1.6, Monocytes # (Auto) 0.7, Eosinophils # (Auto) 0.1, Basophils # (Auto) 0.1, Immature Granulocyte # (Auto) 0.0, Percent Immature Platelet Fraction 5.2 Home Meds Active Dok (Docusate Sodium) 100 Mg Capsule 100 Mg PO BID Ibu (Ibuprofen) 600 Mg Tablet 600 Mg PO Q6HR PRN Reported Vitamin Tablet ( Vit No.124/Iron/FA) 1 Each Tablet 1 Each PO DAILY Assessment/Pt DC Instructions Follow up with Dr. Suh in 6 weeks for visit. Discharge Diet: Regular Diet Activity as Tolerated: Yes (avoid strenuous activity x 6 weeks) Discharge Physical Examination Allergies: Coded Allergies: NKANo Known Allergies (Verified Allergy, Unknown, 01/21/06) General Appearance: No Apparent Distress, WD/WN Respiratory: Lungs Clear, Normal Breath Sounds Cardiovascular: Regular Rate, Rhythm, No Edema, No Murmur Gastrointestinal: Other (fundus firm below umbilicus, nontender) Extremity: No Pedal Edema Neurologic/Psychiatric: Alert, Normal Mood/Affect CHELI XIE MD January 19, 2021 10:49
--- NOTE | 2021-01-19 14:23 | Anesthesia-Regional Post-Op ---
Regional Patient Condition Mental Status: Alert, Oriented x3 Circulation: Same as Pre-Op Headache: Absent Sensation: Full Recovery Motor Block: Absent Post Op Complications Complications None Follow Up Care/Instructions Patient Instructions None needed. Anesthesia/Patient Condition Patient is doing well, no complaints, stable vital signs, no apparent adverse anesthesia problems. No complications reported per nursing. PHYLICIA HONEYCUTT CRNA January 19, 2021 14:23
[2021-01-19 15:42] VITALS: BP 111/71
== END 2021-01-19 15:42 | disposition home or self-care (01) | DRG 807 ==
LOC: WSo 00:03 → LDRP 00:04 → WSo 03:25 → LDRP 03:46
PROVIDERS: ADMIT Family Medicine; ATTEND Family Medicine
PROC: 10E0XZZ Delivery of Products of Conception, External Approach (ICD-10-PCS; principal; 2021-01-18)
PROC: 10907ZC Drainage of Amniotic Fluid, Therapeutic from Products of Conception, Via Natural or Artificial Opening (ICD-10-PCS; 2021-01-18)
DX: O80 Encounter for full-term uncomplicated delivery (principal); Z37.0 Single live birth; Z3A.39 39 weeks gestation of pregnancy
CPT/HCPCS: 36415; 81000; 85025; 86780; 86850; 86900; 86901; 99212